=== PATIENT | male | born 1965 | race Caucasian/White ===

== ENCOUNTER 2024-06-19 10:23 | Outpatient (CLI) | payer MEDICARE, MEDICAID ==
[~2024-06-19 10:23] MED LIST: CYCL-394 PO; FLO0.4C PO; GABA-1405 PO; INSU100C4 SQ; LANTUS SUBCUT; LINA145C PO; NIFE-128 PO; OMEP40CA21 PO; ONDA-104 PO; SIMV-42 PO; SUCR1ORA12 PO; SYN0.088T PO; TADA5TAB2 PO; TRAM50TA2 PO; VALS160T30 PO
== END 2024-06-19 23:59 | disposition home or self-care (01) ==
LOC: CARD DIAG 10:23
PROVIDERS: ATTEND Anesthesiology
DX: R94.31 Abnormal electrocardiogram [ECG] [EKG] (principal); I37.1 Nonrheumatic pulmonary valve insufficiency
CPT/HCPCS: 93306

== ENCOUNTER 2024-06-22 05:22 | Inpatient (IN) | payer MEDICARE, MEDICAID ==
[2024-06-17 16:21] LABS: BASOPHILS # (AUTO) 0.1 X10'3 (0-0.2); BASOPHILS % (AUTO) 1.8 % (0-1); EOSINOPHILS # (AUTO) 0.1 X10'3 (0-0.9); EOSINOPHILS % (AUTO) 1.7 % (0-6); LYMPHOCYTES # (AUTO) 1.3 X10'3 (1.1-4.8); LYMPHOCYTES % (AUTO) 21.9 % (21-51); MEAN CORPUSCULAR HEMOGLOBIN 29.5 PG (27.0-31.0); MEAN CORPUSCULAR HGB CONC 34.1 g/dL (33.0-36.5); MEAN CORPUSCULAR VOLUME 86.7 FL (78-98); MEAN PLATELET VOLUME 6.2 FL (7.4-10.4); MONOCYTES # (AUTO) 0.6 X10'3 (0-0.9); MONOCYTES % (AUTO) 10.1 % (2-12); NEUTROPHILS # (AUTO) 3.9 X10'3 (1.8-7.7); NEUTROPHILS % (AUTO) 64.5 % (42-75); PRE OP HEMATOCRIT 34.4 % (42.0-52.0); PRE OP HEMOGLOBIN 11.7 g/dL (14.0-17.9); PRE OP PLATELET COUNT 556 X10'3 (140-440); RED BLOOD COUNT 3.97 X10'6 (4.70-6.10); RED CELL DISTRIBUTION WIDTH 13.9 % (11.5-14.5)
[2024-06-17 16:43] LABS: ALBUMIN 3.4 G/DL (3.4-5.0); ALBUMIN/GLOBULIN RATIO 0.9 (1.1-1.5); BLOOD UREA NITROGEN 34 MG/DL (7-18); BUN/CREATININE RATIO 13.9 (10.0-20.0); CALCIUM 9.1 MG/DL (8.5-10.1); CHLORIDE 101 MMOL/L (99-107); CREATININE 2.45 MG/DL (0.60-1.10); PRE OP ALT 24 U/L (30-65); PRE OP ANION GAP 10 (8-16); PRE OP AST 13 U/L (10-37); PRE OP BILIRUB, TOTAL 0.3 MG/DL (0.0-1.0); PRE OP GLUCOSE 150 MG/DL (70-104); PRE OP POTASSIUM 4.4 MMOL/L (3.4-5.1); PRE OP SODIUM 136 MMOL/L (135-145); THYROID STIMULATING HORMONE 3.15 ulU/ml (0.34-4.50); TOTAL CARBON DIOXIDE 25.5 MMOL/L (24-32); TOTAL PROTEIN 7.3 G/DL (6.4-8.2); eGFR 27 ML/MIN
[2024-06-17 16:53] LABS: ALKALINE PHOSPHATASE 115 IU/L (46-116)
[2024-06-17 17:23] LABS: HEMOGLOBIN A1C 9.2 % (4.5-6.2)
[2024-06-22] VITALS (21 sets, daily range): BP systolic 124–192; BP diastolic 69–108; PULSE 77–106; RESP 12–20; TEMP 97.6–98.6; O2SAT 16–100
[~2024-06-22] VITALS: Ht 182.9 cm; Wt 83.7 kg
[2024-06-22] MEDS: ceFOXitin 2GM-NS 100mL ADDvant 100 ML IV ONE (05:30)
[2024-06-22] MEDS: famotidine 20mg tablet PO ONE (06:31)
[2024-06-22] MEDS: metroNIDAZOLE-Flagyl 500mg/NS 100ML IVPB IV ONE (06:33)
[2024-06-22] MEDS: ringers solution, lacted 1,000 ML IV SCH ×2 (06:33→09:00)
[2024-06-22] MEDS: heparin, porcine 5000 units/ml vial SQ ONE (07:15)
[2024-06-22] MEDS ORDERED: LIDOcaine 1% 30ml preserv. free vial ONE (07:22)
[2024-06-22] MEDS ORDERED: BUPIVAcaine 2.5mg/ml inj 50ml vial (contains preservative) ONE (07:22)
[2024-06-22] MEDS ORDERED: tobramycin 40mg/ml inj ONE (07:25)
[2024-06-22] MEDS ORDERED: LIDOcaine 1% W/epiNEPHrine 1:100,000 20ml vial ONE (07:25)
[2024-06-22] MEDS ORDERED: fentaNYL /PF 50mcg/ml 5ml ampule ONE (07:26)
[2024-06-22] MEDS ORDERED: propofol inj 20 ML IV ONE (07:26)
[2024-06-22] MEDS ORDERED: MIDAZolam 1 MG/ML 5ML VIAL ONE (07:26)
[2024-06-22] MEDS ORDERED: rocuronium 10mg/ml inj IV ONE ×2 (07:26→10:54)
[2024-06-22] MEDS ORDERED: sevoflurane 250ml liquid IH ONE (07:38)
[2024-06-22] MEDS: BUPIVAcaine 2.5mg/ml inj 50ml vial (contains preservative) SQ ONE (08:18)
[2024-06-22] MEDS ORDERED: ondansetron/PF 4mg/2ml inj IV PRN (09:00)
[2024-06-22] MEDS ORDERED: morphine 2 MG/ML inj. syringe IV PRN (09:00)
[2024-06-22] MEDS ORDERED: meperidine/PF 25mg/ml syringe IV PRN ×2 (09:00)
[2024-06-22] MEDS ORDERED: proCHLORperazine 10 MG/2 ml inj IV PRN (09:00)
[2024-06-22] MEDS ORDERED: INDOCYANINE GREEN 25 MG/10 ML VIAL IV ONE (09:10)
[2024-06-22] MEDS ORDERED: acetaminophen 1,000mg/100ml IV 100 ML IV ONE (10:54)
[2024-06-22] MEDS ORDERED: fentaNYL/PF 50MCG/1 ML 2ML syringe ONE (11:01)
[2024-06-22] MEDS ORDERED: sugammadex 200mg/2ml injection IV ONE (11:33)
[2024-06-22] MEDS: normal saline 1000ml 1,000 ML IV SCH (12:05)
[2024-06-22] MEDS ORDERED: naloxone 0.4 mg/ml inj IV PRN (12:05)
[2024-06-22] MEDS: potassium CL 20mEq in D5-1/2NS 1,000 ML IV SCH (12:05)
[2024-06-22] MEDS: meperidine/PF 25mg/ml syringe IV PRN (12:20)
[2024-06-22] MEDS ORDERED: ondansetron 4mg rapidly disintigrating tab PO PRN (12:20)
[2024-06-22] MEDS ORDERED: non-formulary drug (Insulin Aspart (Novolog) 100 UNIT) SQ PRN (12:20)
[2024-06-22] MEDS: morphine 4 MG/ML inj SYRINge IV PRN (12:33)
[2024-06-22] MEDS: HYDROmorph/NS 0.2 mg/ml PCA 100 ML IV SCH (12:47)
[2024-06-22] MEDS ORDERED: DEXTROSE 15 GM of carb/4 tabs (each vial/BOTTLE has 4 tablets) PO PRN ×2 (12:50)
[2024-06-22] MEDS ORDERED: dextrose 50%-water 50ml dispensing syringe IV PRN ×2 (12:50)
[2024-06-22] MEDS ORDERED: glucagon, human recombinant 1mg kit SUBCUT PRN (12:50)
[2024-06-22] MEDS: ceFOXitin 1 GM/D5W 50mL IVPB 50 ML IV SCH (15:55)
[2024-06-22] MEDS: ondansetron/PF 4mg/2ml inj IV PRN (15:55)
[2024-06-22] MEDS: metroNIDAZOLE-Flagyl 500mg/NS 100 ML IV SCH (15:56)
[2024-06-22] MEDS: gabapentin 300mg capsule PO SCH (15:56)
[2024-06-22] MEDS: INSULIN LISPRO 100 UNIT/ML INSULN.PEN MULTI-DOSE SQ SCH (18:01)
[2024-06-22] MEDS: acetaminophen 1,000mg/100ml IV 100 ML IV SCH (19:55)
[2024-06-22] MEDS: docusate sod 100mg capsule PO SCH (20:02)
[2024-06-22] MEDS: heparin, porcine 5000 units/ml vial SQ SCH (20:03)
[2024-06-22] MEDS: simvastatin 20mg tablet PO SCH (20:54)
[2024-06-22] MEDS: cyclobenzaprine 10mg tablet PO SCH (20:54)
[2024-06-22] MEDS: hydrALAZINE 20mg/ml inj. IV PRN (21:36)
[2024-06-23] VITALS (9 sets, daily range): BP systolic 120–180; BP diastolic 80–98; PULSE 93–115; RESP 16–18; TEMP 96.4–97.7; O2SAT 98–100
[2024-06-23 04:58] LABS: BASOPHILS % (AUTO) 0.2 % (0-1); EOSINOPHILS % (AUTO) 0 % (0-6); HEMATOCRIT 35.2 % (42.0-52.0); HEMOGLOBIN 11.9 g/dl (14.0-17.9); LYMPHOCYTES # (AUTO) 0.4 X10'3 (1.1-4.8); MEAN CORPUSCULAR HEMOGLOBIN 29.7 PG (27.0-31.0); MEAN CORPUSCULAR HGB CONC 33.8 g/dL (33.0-36.5); MEAN CORPUSCULAR VOLUME 87.7 FL (78-98); MEAN PLATELET VOLUME 6.4 FL (7.4-10.4); MONOCYTES # (AUTO) 1.2 X10'3 (0-0.9); MONOCYTES % (AUTO) 6.4 % (2-12); NEUTROPHILS # (AUTO) 16.4 X10'3 (1.8-7.7); NEUTROPHILS % (AUTO) 91.4 % (42-75); PLATELET COUNT 509 X10'3 (140-440); RED BLOOD COUNT 4.02 X10'6 (4.70-6.10); RED CELL DISTRIBUTION WIDTH 13.8 % (11.5-14.5)
[2024-06-23 05:09] LABS: ALBUMIN 3.1 G/DL (3.4-5.0); ANION GAP 15 (8-16); BLOOD UREA NITROGEN 30 MG/DL (7-18); BUN/CREATININE RATIO 11.8 (10.0-20.0); CALCIUM 8.7 MG/DL (8.5-10.1); CHLORIDE 99 MMOL/L (99-107); CREATININE 2.55 MG/DL (0.60-1.10); GLUCOSE 361 MG/DL (70-104); POTASSIUM 4.6 MMOL/L (3.5-5.1); SODIUM 133 MMOL/L (135-145); TOTAL CARBON DIOXIDE 19.5 MMOL/L (24-32); eCRCL 35 ML/MIN; eGFR 26 ML/MIN
[2024-06-23] MEDS: INSULIN LISPRO 100 UNIT/ML INSULN.PEN MULTI-DOSE SQ SCH ×2 (07:00→17:00)
[2024-06-23] MEDS: losartan 50mg tablet PO SCH (08:00)
[2024-06-23] MEDS ORDERED: insulin glargine (Lantus) VIAL- multi-dose SQ SCH (08:00)
[2024-06-23] MEDS ORDERED: labetalol 20mg/4ml (5mg/ml) syringe IV ONE (08:10)
[2024-06-23] MEDS: hydrALAZINE 20mg/ml inj. IV ONE (08:12)
[2024-06-23] MEDS: insulin glargine (Lantus) VIAL- multi-dose SQ SCH (08:27)
[2024-06-23] MEDS: normal saline 1000ml 1,000 ML IV SCH (08:37)
[2024-06-23] MEDS: proCHLORperazine 10 MG/2 ml inj IV PRN (08:52)
[2024-06-23] MEDS: INSULIN LISPRO 100 UNIT/ML INSULN.PEN MULTI-DOSE SQ ONE ×2 (08:57→11:15)
[2024-06-23] MEDS: insulin Lispro (HumaLOG) vial - multi-dose SQ ONE (09:03)
[2024-06-23] MEDS: tamsulosin 0.4mg capsule PO SCH (10:03)
[2024-06-23] MEDS: NIFEdipine XL 30mg tablet PO SCH (10:03)
[2024-06-23] MEDS: cloNIDine 0.1 mg tablet PO SCH (10:03)
[2024-06-23] MEDS: pantoprazole 40mg Tablet.DR PO SCH (10:03)
[2024-06-23] MEDS: levoTHYROXINE 75mcg tablet PO SCH (10:03)
[2024-06-23 17:07] LABS: C-REACTIVE PROTEIN 17.9 MG/DL (0.0-0.5)
[2024-06-23] MEDS: PCA WASTE DOCUMENTATION 1 MG ML MC SCH (19:40)
[2024-06-23] MEDS: normal saline 500ml IV soln 500 ML IV ONE (20:13)
[2024-06-23] MEDS: gabapentin 300mg capsule PO SCH (20:14)
[2024-06-24 06:00] VITALS: BP 142/77; PULSE 108; RESP 14; TEMP 97.6; O2SAT 95
[2024-06-24 06:57] LABS: BASOPHILS % (AUTO) 0.3 % (0-1); EOSINOPHILS % (AUTO) 0.2 % (0-6); HEMATOCRIT 29.2 % (42.0-52.0); HEMOGLOBIN 10.1 g/dl (14.0-17.9); LYMPHOCYTES # (AUTO) 0.6 X10'3 (1.1-4.8); LYMPHOCYTES % (AUTO) 5.8 % (21-51); MEAN CORPUSCULAR HGB CONC 34.8 g/dL (33.0-36.5); MEAN CORPUSCULAR VOLUME 86.3 FL (78-98); MEAN PLATELET VOLUME 6.7 FL (7.4-10.4); MONOCYTES # (AUTO) 1.3 X10'3 (0-0.9); MONOCYTES % (AUTO) 12.1 % (2-12); NEUTROPHILS # (AUTO) 8.5 X10'3 (1.8-7.7); NEUTROPHILS % (AUTO) 81.6 % (42-75); PLATELET COUNT 391 X10'3 (140-440); RED BLOOD COUNT 3.38 X10'6 (4.70-6.10); RED CELL DISTRIBUTION WIDTH 13.8 % (11.5-14.5); WHITE BLOOD COUNT 10.4 X10'3 (4.5-11.0)
[2024-06-24 07:19] LABS: ALBUMIN 2.5 G/DL (3.4-5.0); ANION GAP 11 (8-16); BLOOD UREA NITROGEN 29 MG/DL (7-18); BUN/CREATININE RATIO 12.3 (10.0-20.0); C-REACTIVE PROTEIN 16.38 MG/DL (0.0-0.5); CHLORIDE 99 MMOL/L (99-107); CREATININE 2.35 MG/DL (0.60-1.10); GLUCOSE 255 MG/DL (70-104); SODIUM 132 MMOL/L (135-145); TOTAL CARBON DIOXIDE 22.2 MMOL/L (24-32); eCRCL 38 ML/MIN; eGFR 29 ML/MIN
[2024-06-24] MEDS: insulin glargine (Lantus) VIAL- multi-dose SQ SCH (07:28)
[2024-06-24 10:57] VITALS: BP 182/102; PULSE 106; RESP 19; TEMP 97.6; O2SAT 96
[2024-06-24] MEDS: magnesium hydroxide 30ml (MOM) UD suspension PO ONE (11:08)
[2024-06-24] MEDS: losartan 50mg tablet PO SCH (11:08)
[2024-06-24] MEDS: HYDROcodone/acetaminophen 5mg/325mg tablet PO PRN (11:09)
[2024-06-24] MEDS: PCA WASTE DOCUMENTATION 1 MG ML MC SCH (12:16)
[2024-06-24 13:00] VITALS: BP 170/99; PULSE 117; O2SAT 97
[2024-06-24 13:20] VITALS: BP 168/96; PULSE 111
[2024-06-24] MEDS: cloNIDine 0.1 mg tablet PO PRN (13:57)
[2024-06-24 14:51] VITALS: BP 175/107; PULSE 113
[2024-06-24] MEDS: cloNIDine 0.1 mg tablet PO ONE (15:09)
[2024-06-24 16:30] VITALS: BP 159/97; PULSE 111
[2024-06-25] MEDS ORDERED: metroNIDAZOLE 500mg tablet PO SCH
== END 2024-06-24 17:25 | disposition home or self-care (01) | DRG 330 ==
LOC: PAS IN 05:22 → SUR 3N 13:35
PROVIDERS: ADMIT Colon & Rectal Surgery; ATTEND Colon & Rectal Surgery
PROC: 8E0W4CZ Robotic Assisted Procedure of Trunk Region, Percutaneous Endoscopic Approach (ICD-10-PCS; 2024-06-22)
PROC: 0DBF4ZZ Excision of Right Large Intestine, Percutaneous Endoscopic Approach (ICD-10-PCS; principal; 2024-06-22 07:38)
DX: D12.0 Benign neoplasm of cecum (principal); E87.1 Hypo-osmolality and hyponatremia; N18.4 Chronic kidney disease, stage 4 (severe); E11.22 Type 2 diabetes mellitus with diabetic chronic kidney disease; I12.9 Hypertensive chronic kidney disease with stage 1 through stage 4 chronic kidney disease, or unspecified chronic kidney disease; E03.9 Hypothyroidism, unspecified; D72.829 Elevated white blood cell count, unspecified; Z79.4 Long term (current) use of insulin; Z79.899 Other long term (current) drug therapy
CPT/HCPCS: 36415; 71046; 80048; 80053; 82948; 83036; 84443; 84484; 85025; 86140; 86885; 86900; 86901; 87081; 88309; 93005; A4344; A4615; A4618; A5200; A6449; A7000; G0378; J0131; J0360; J0694; J0780; J1171; J1644; J1815; J2003; J2175; J2250; J2270; J2405; J2704; J3010; J3260; J3480; J3490; J7030; J7040; J7120